=== PATIENT | female | born 1930 | race Caucasian/White ===

== ENCOUNTER 2016-08-01 11:15 | Inpatient (IN) | payer MEDICARE, OTHER ==
--- NOTE | ~2016-08-01 | CON ---
[facility] 86 Y [address] ROOM: [place] [address] LOCATION: [facility] ADMIT DATE: 08/01/2016 Consultation DISCHARGE DATE: FAMILY PHYSICIAN: PHYSICIAN, UNKNOWN ATTENDING PHYSICIAN: Srinivasan Kline DATE OF CONSULTATION: 08/01/2016 REFERRING PHYSICIAN: Srinivasan Kline MD REASON FOR THE CONSULTATION: Medical management for the patient with hip fracture. HISTORY OF PRESENT ILLNESS: The patient is an 86-year-old, female, who has mild dementia, chronic heart failure, and chronic bronchitis, was in her usual state of fair health when she slipped after letting her dog out this morning. She initiated her Life Alert bracelet and her daughter was notified that her mom had fallen and was on the floor. When her daughter arrived at home, she found her mom sitting in front of a rotary drier on the floor, unable to move, with pain in her right hip. She was transferred to a hospital in [place], [place], from where she was transferred to us for a definitive care of the hip fracture. The entire history is obtained from the daughter who is her power of commercial litigation attorney along with her brother who resides in [place]. The patient also sustained a skin tear to her right elbow and was complaining of left heel and ankle tenderness. She has been admitted to the Orthopedic floor and is awake and alert, pending for the surgery. PAST MEDICAL HISTORY: 1. Chronic bronchitis. 2. Atrial fibrillation, on chronic anticoagulation therapy. 3. Severe pneumonia in early . 4. TIA. 5. Dementia. 6. Atrial septal defect, status post noninvasive repair. 7. Chronic heart failure. 8. Elevated liver functions of unknown etiology in fall of 2016. 9. Maxillary sinusitis. PAST SURGICAL HISTORY: 1. Bilateral cataract resection with lens implant. 2. Multiple sinus procedures for chronic sinusitis in the . 3. Cholecystectomy. 4. Appendectomy. 5. ASD, status post occluded and replaced in [place] around 10 years ago or more. [facility]: [facility] AGE: 86 Y [address] ROOM: [place] [address] LOCATION: [facility] ADMIT DATE: 08/01/2016 Consultation DISCHARGE DATE: FAMILY PHYSICIAN: PHYSICIAN, UNKNOWN ATTENDING PHYSICIAN: Srinivasan Kline SOCIAL HISTORY: She is ,is living alone, sometimes her son staying with her, but at other times, lives with her daughter. She quit smoking at age approximately 49 with an unknown pack-year history of smoking. She has no history of alcohol use. The patient wishes to be a DNR/DNI as confirmed to me by her daughter. FAMILY HISTORY: Her father in his 50s of an [place]. Her mother in her 70s of cancer, thought to be multiple myeloma. REVIEW OF SYSTEMS: Positive for chronic cough, it is productive, but she has difficulty expectorating due to her weakness. Her urine had been dark previously with elevated liver functions, but was noted to be dark again when she was catheterized earlier today. She denies recent headaches or visual changes. She has had decreased hearing. Her chronic heart failure was fairly uncontrolled about 6 months ago, but has been much better recently. Otherwise, a 12-point review of systems is negative. ALLERGIES: GLUCOCORTICOIDS, PROPOXYPHENE, ACETAMINOPHEN, METHYLPREDNISOLONE, METHADONE, AND LATEX. MEDICATIONS: She takes, 1. Tylenol Arthritis 650 mg tablets two every 8 hours as needed. 2. She takes azithromycin 250 mg p.o. three times a week for chronic bronchitis. 3. Symbicort inhaler 160/4.5 mcg two puffs every 12 hours. 4. Ahist 25 mg at h.s. 5. Digoxin 125 mcg every evening. 6. Colace 200 mg every morning. 7. Aricept 10 mg daily. 8. Folic acid 0.8 mg daily. 9. Guaifenesin. 10. Mucinex tabs 600 mg p.o. daily. 11. Robitussin DM liquid 10 mL every 4 hours p.r.n. cough. 12. DuoNeb inhaler 3 times daily. 13. Loratadine 10 mg daily. 14. Memantine 10 mg p.o. b.i.d. 15. Zaroxolyn 2.5 mg every a.m. 16. Metoprolol XL 50 mg p.o. b.i.d. 17. Omeprazole 20 mg 3 times a week. PATIENT'S NAME: ELIDA WALTERS [facility] AGE: 86 Y [address] ROOM: [id number] [place], [place] [address] LOCATION: [facility] ADMIT DATE: 08/01/2016 Consultation DISCHARGE DATE: FAMILY PHYSICIAN: PHYSICIAN, UNKNOWN ATTENDING PHYSICIAN: Srinivasan Kline 18. Senna 1 at h.s. daily. 19. Spironolactone 12.5 mg every morning. 20. Warfarin 4 mg every day. PHYSICAL EXAMINATION: GENERAL: This is a well-developed, well-nourished, pale, elderly female who fell sleep when I came into the room, but is awake and alert for her physical exam. VITAL SIGNS: Temperature 97.7, pulse 80, respirations 20, and blood pressure 159/76. HEENT: Normocephalic, atraumatic. Pupils are equal, round, reactive to light. Sclerae are anicteric. Palpebral conjunctivae are very pale without exudate. Oropharynx is clear. She has upper dentures and her natural teeth in the lower jaw. NECK: Supple without lymphadenopathy or thyromegaly. LUNGS: Show like peak inspiratory wheeze which is scattered throughout the right, is clear on the left. She has some rhonchi on the right as well. She has intermittent wet cough with productive clear sputum. CARDIOVASCULAR: Slightly irregular rhythm. I do not appreciate a murmur. ABDOMEN: Soft, nontender, nondistended without hepatosplenomegaly or mass. Normoactive bowel sounds. EXTREMITIES: Tender on the right hip. There is 1 to 2+ pretibial edema. Strength in the left leg is good distally 5/5 with plantar flexion and dorsiflexion, it is not tested on the right because of the pain in the right hip with minimal attempt to sit up. Gross strength is about 4/5 and equal bilaterally. LABORATORY DATA: A urinalysis obtained here showed positive for leukocytes, negative for nitrites, positive for blood, and had 20-50 white blood cells per high-power field and packed with red cells. INR was above 2 at the other hospital and she received 10 mg of vitamin K IM. White blood cells 17.4, hemoglobin 14.7, hematocrit 42.6, MCV 87, and platelets 179,000. Sodium 138, potassium 3.6, chloride 104, CO2 23, glucose 133, BUN 33, and creatinine 1.2. Calcium 8.6, total protein 7.0, albumin 3.2, AST 29 (normal ranges is 15-37), and ALT 25. Albumin is 2.2. INR as I said above was 2.13. Cardiac enzymes: CPK 47, CK- MB 1.7, troponin 0.05 which was well within the normal range. RADIOGRAPHIC STUDIES: A CT of the head showed no acute intracranial findings, this is also done at the outlying facility. X-ray of the hip showed a femoral neck fracture. ASSESSMENT/PLAN: This is an elderly lady with multiple chronic medical problems which puts her at least moderate increased risk of perioperative complications, and I PATIENT'S NAME: ELIDA WALTERS [facility] AGE: 86 Y [address] ROOM: [place] [address] LOCATION: [facility] ADMIT DATE: 08/01/2016 Consultation DISCHARGE DATE: FAMILY PHYSICIAN: PHYSICIAN, UNKNOWN ATTENDING PHYSICIAN: Srinivasan Kline explained this to the daughter and she is willing to proceed with the operative repair. 1. She has a urinary tract infection with elevated white blood cell count. White blood cell is too high and rau-[id number]-dn-count red cells in her urine. We will give her a dose of Rocephin tonight. Follow that daily with daily dosing. Follow the urine culture results. 2. Chronic heart failure with atrial fibrillation, on anticoagulation therapy. She has had a dose of vitamin K to reverse her anticoagulation. Recheck her INR in the morning, recheck digoxin level in the morning, and continue her home medications. Hold her IV fluids for now. 3. Chronic bronchitis. Continue her azithromycin dosing 3 times a week. 4. Dementia. Continue Aricept and Namenda. 5. Code status. She is a DNR/DNI. 6. Disposition. As per Orthopedics. Thank you very much. NAYA IGLESIAS MD LM/ramesh /[id number] d: 08/01/16 2343 t: 08/27/16 1007, CONSULTATION REPORT
--- NOTE | ~2016-08-01 | DS ---
[facility] AGE[facility] 86 Y [address] ROOM: [place] [id number] LOCATION: [facility] ADMIT DATE: 08/01/2016 Discharge Summary DISCHARGE DATE: 08/13/2016 FAMILY PHYSICIAN: Floyd Romero MD ATTENDING PHYSICIAN: Srinivasan Kline DISCHARGE DIAGNOSES: 1. Femoral neck fracture of right hip. 2. Atrial fibrillation. 3. Pulmonary hypertension. 4. History of transient ischemic attack. 5. Dementia. 6. History of atrial septal defect repair. 7. DCMP. 8. Chronic bronchitis. OPERATIVE PROCEDURES: Hemiarthroplasty of right hip by Dr. Nicholas Dillon on 08/02/2016. HISTORY: This 86-year-old female, fell suffering a right femoral neck fracture, which was displaced. She presented to [facility] Emergency Room, and was admitted for definitive treatment. There were no other injuries. She was evaluated by the Hospitalist Service, and a Cardiac consult was obtained. She was cleared for surgery. HOSPITAL COURSE: She was taken to the Operating Room on 08/02/2016, where a hemiarthroplasty of the right hip was performed by Dr. Nicholas Dillon without complications. She was stable postoperatively. Her wound was excellent. Neuro checks were intact. She was seen by Physical Therapy, and ambulated weightbearing as tolerated. Postoperative x-rays demonstrated a hemiarthroplasty of the right hip in satisfactory position. DISCHARGE DISPOSITION: She was discharged to a long-term care facility on 08/07/2016. DISCHARGE ACTIVITY: Ambulate weightbearing as tolerated with assistance. DISCHARGE MEDICATIONS: 1. Docusate. 2. Folic acid. 3. Lovenox. 4. Metoprolol. 5. Metolazone. 6. Digoxin. [facility] AGE: 86 Y [address] ROOM: [address] [address] LOCATION: [facility] ADMIT DATE: 08/01/2016 Discharge Summary DISCHARGE DATE: 08/13/2016 FAMILY PHYSICIAN: Floyd Romero MD ATTENDING PHYSICIAN: Srinivasan Kline 7. Omeprazole. 8. Namenda. 9. Spironolactone. 10. Warfarin 4 mg daily. 11. Ipratropium/albuterol sulfate inhaler. 12. Acetaminophen. 13. Milk of magnesia. 14. Oxycodone. 15. Loratadine. 16. Saline nasal spray. DISCHARGE FOLLOWUP: She will follow up in the office for staple removal. PT Physical Therapy is to see her, weightbearing as tolerated. MD MIKE PHILIP/ramesh /[id number] d: 10/08/16 0037 t: 10/30/16 1114, DISCHARGE SUMMARY
--- NOTE | ~2016-08-01 | CON ---
PATIENT'S NAME: ELIDA WALTERS [facility] AGE: 86 Y [address] ROOM: [place] [address] LOCATION: [facility] ADMIT DATE: 08/01/2016 Consultation DISCHARGE DATE: FAMILY PHYSICIAN: Floyd Romero MD ATTENDING PHYSICIAN: Srinivasan Kline DATE OF CONSULTATION: 08/02/2016 REASON FOR CARDIOLOGY CONSULT: Need for preoperative cardiac evaluation. HISTORY OF PRESENT ILLNESS: This is an 86-year-old female who was admitted with a right hip fracture after a fall in her home. She had no complaints of syncope or loss of consciousness. She states she slipped on a floor by her back door after walking her dogs. She has a previous history of chronic systolic congestive heart failure as well as chronic atrial fibrillation and was last seen and evaluated by Dr. Sandhu in May 2016. She, at this time, has no complaints of chest pain, dyspnea on exertion, or palpitations. She does have complaints of shortness of breath as well as productive cough, but per her daughter who is her POA, she "has had that for years." At the time of this consult, she is resting comfortably in bed with some complaints of spasmodic pain in her hips and also of her cough, but otherwise is comfortable. PAST MEDICAL HISTORY: 1. Chronic systolic congestive heart failure. 2. Chronic atrial fibrillation, with long-term anticoagulation with Coumadin. 3. Chronic kidney disease. 4. Bronchiectasis. PAST SURGICAL HISTORY: 1. Hysterectomy. 2. Appendectomy. 3. Cholecystectomy. 4. Cataract removal. 5. Atrial septal occluder placed for a PFO. FAMILY HISTORY: She does have a positive history of myocardial infarction as well as cancer in her parents. She does have one child who has diabetes. SOCIAL HISTORY: The patient is a former cigarette smoker. She smoked half a pack per day and quit smoking in 1978. She denies alcohol or illicit drug use. CURRENT MEDICATIONS: PATIENT'S NAME: ELIDA WALTERS [facility] AGE: 86 Y [address] ROOM: [address] [address] LOCATION: N ADMIT DATE: 08/01/2016 Consultation DISCHARGE DATE: FAMILY PHYSICIAN: Floyd Romero MD ATTENDING PHYSICIAN: Srinivasan Kline 1. Dulera 200/5 mcg 2 puffs inhaled twice daily. 2. Ipratropium bromide and albuterol sulfate one puff inhaled 3 times daily. 3. Ancef 2 g IV on-call to the OR. 4. Rocephin 1 g IV daily in the evening. 5. Aldactone 12.5 mg p.o. daily. 6. Colace 100 mg p.o. twice daily. 7. Folic acid 800 mg p.o. daily. 8. Mucinex 600 mg p.o. daily. 9. MiraLax 17 g p.o. twice daily. 10. Namenda 10 mg p.o. twice daily. 11. Protonix 40 mg p.o. daily on Friday, Friday, and Friday. 12. Senokot 2 tablets p.o. daily in the evening. 13. Zaroxolyn 2.5 mg p.o. daily in the morning. MEDICATION ALLERGIES: Include corticosteroids, propoxyphene, methylprednisolone, and methadone. She is also allergic to latex, kiwis, and bananas. REVIEW OF SYSTEMS: A 12-point review of systems evaluated and negative except for those listed in the HPI. DIAGNOSTIC DATA: CMS evaluation shows a sodium of 139, potassium 4.0, BUN of 32, creatinine 1.3, and glucose of 104. She has a digoxin level of 1.31. PT and INR show 20.6 and 1.9 respectively. Cardiac enzyme trend shows a CPK of 66, CK-MB of 0.8, and troponin-I of less than 0.04. She has a proBNP level of 10,964. PHYSICAL EXAMINATION: VITAL SIGNS: Temperature 97.6, pulse 80, respirations 20, blood pressure 113/66, and O2 saturation 94% on 5 L nasal cannula. The patient weighs 67.7 kg. SKIN: [place], warm, and dry. EYES: Sclerae are clear. No xanthelasmas. ENT: Oral mucosa is pink and moist. NECK: No jugular venous distention or carotid bruits. CHEST: Respirations are even and unlabored. Lungs are coarse throughout with bibasilar crackles noted. She does have some upper airway clearing with cough. HEART: Irregular rate and rhythm. Normal S1 and S2. No murmurs, rubs, or gallops. ABDOMEN: Soft and nontender. MUSCULOSKELETAL: Equal muscle strength in the upper and lower extremities bilaterally against resistance. EXTREMITIES: Peripheral pulses palpable. No clubbing or cyanosis noted. PATIENT'S NAME: ELIDA WALTERS [facility] AGE: 86 Y [address] ROOM: [address] [place], [place] [address] LOCATION: [facility] ADMIT DATE: 08/01/2016 Consultation DISCHARGE DATE: FAMILY PHYSICIAN: Floyd Romero MD ATTENDING PHYSICIAN: Srinivasan Kline Does have minimal lower extremity edema present. PSYCHIATRIC: Alert and oriented. Mood and affect are appropriate. IMPRESSION AND PLAN: Per Dr. Kate Sebastian: 1. Preoperative cardiac evaluation. We will get an echocardiogram to fully evaluate ejection fraction as well as look for wall motion and valvular abnormalities. She currently has a negative set of cardiac enzymes and no signs and symptoms suggestive of acute coronary syndrome. Her EKG is stable without any acute changes noted. 2. Chronic atrial fibrillation, is currently rate controlled. Her Coumadin, which she uses for long-term anticoagulation, has been reversed for her surgery. Do recommend restarting the Coumadin postoperatively and continuing her beta kayla with her metoprolol as dosed per her home. 3. Chronic systolic congestive heart failure. With her elevated proBNP as well as congested-sounding lung sounds, we will give her 2 mg of IV Bumex now as well as check a stat chest x-ray. We will need another BMP evaluation in the morning. She is currently on a beta kayla as well as Zaroxolyn for diuresis. We will continue to monitor, evaluate, and treat as appropriate. 4. Right hip fracture status post a fall without syncope or loss of consciousness. Plan is for a surgical repair this afternoon. 5. Chronic kidney disease, stage 3. The patient overall is a moderate risk for perioperative cardiac events. Her congestive heart failure symptoms have improved recently with decreased weight after being placed on Zaroxolyn and Aldactone by Dr. Sandhu. She has overall had lesser complaints of shortness of breath. No further cardiac workup needed at this time prior to surgery. Of note, she does have a history of a patent foramen ovale with a closure device and did have history of a cerebrovascular accident. Due to that cerebrovascular accident, she is at high risk for further neurologic events if her oral anticoagulation is not restarted postoperatively. Would recommend heparin if unable to fully start Coumadin, but do make sure it is okay with Surgery beforehand. Thank you for this consult. Thank you for allowing [facility] to interact in the care of your patient. EDILSON AMBROSIO APRN FOR MD DANIELLE THOMAS/ramesh PATIENT'S NAME: ELIDA WALTERS [facility] AGE: 86 Y [address] ROOM: [address] [address] LOCATION: [facility] ADMIT DATE: 08/01/2016 Consultation DISCHARGE DATE: FAMILY PHYSICIAN: Floyd Romero MD ATTENDING PHYSICIAN: Srinivasan Kline /[id number] d: 08/02/16 1753 t: 08/11/16 [facility]0, CONSULTATION REPORT
--- NOTE | ~2016-08-01 | PUL ---
PATIENT'S NAME: ELIDA WALTERS [facility] AGE: 86 Y [address] ROOM: [address] [address] LOCATION: [facility] ADMIT DATE: 08/01/2016 Pulmonary DISCHARGE DATE: 08/06/2016 FAMILY PHYSICIAN: Floyd Romero MD ATTENDING PHYSICIAN: Srinivasan Kline NAME OF PROCEDURE: Overnight Pulse Oximetry DATE OF PROCEDURE: August 04 to August 05, 2016 REASON FOR EXAM: Nocturnal hypoxemia RESULTS: The test was performed on room air. The recording time was 9 hours, 58 minutes and 8 seconds, with a total valid sampling time of 9 hours, 10 minutes and 52 seconds. The highest pulse was 139, lowest pulse was 70, with a mean pulse of 91. The highest SpO2 was 96%, lowest SpO2 was 77%, with a mean SpO2 of 90.8%. The patient spent 1 hour, 37 minutes and 56 seconds with SpO2 less than 89%, representing 17.8% of the total sleep time. The desaturation event index was elevated at 29.4. PHYSICIAN INTERPRETATION: The patient has evidence of significant nocturnal hypoxia and would qualify for supplemental oxygen as per Medicare criteria. However, because of the severity of her nocturnal hypoxia with an elevated desaturation event index a sleep study is recommended at this time. MD AMARA DAVENPORT/sasha /[id number] Corrected copy per physician 08/14/16 AO dtt: 08/14/16 [id number] , WILLY WISE dtd: 08/08/16 134
--- NOTE | ~2016-08-01 | ECHO ---
Transthoracic Echocardiography Report (TTE) Demographics Patient Name ELIDA WALTERS Date of Study 08/02/2016 K Patient Number [id number] Visit Number [id number] Date of 1930 Room Number G3301 Accession Number [id number] Gender Female Age 86 year(s) Referring Enma Fischer Scrap Bunch Maker Nara Shaffer Physician RDCS Physician Interpreting Jaz Love Comber Tender Physician MD Supervising Ordering Physician MD/MLP Nurse Stress Drywall Contractor Conclusions Contractility Score Summary Global Left Ventricular Hypokinesis was noted. Summary Technically difficult exam. Definity contrast used to enhance endocardial borders to assess LV better. Mild to moderately reduced LV systolic function, estimated LVEF is about 35-40%. Moderate concentric left ventricular hypertrophy. Mildly reduced right ventricular function. Severe biatrial enlargement. There is mild aortic regurgitation by color Doppler. Moderate tricuspid regurgitation by color Doppler. There is severe pulmonary hypertension. The pulmonary pressure (RVSP) is 67 mmHg. Paradoxical septal motion consistent with right ventricle pressure and/or volume overload . Procedure Type of Study TTE procedure:2D Echocardiogram. Procedure Date Date: 08/02/2016 Start: 10:54 AM Study Location: Inpatient Portable Indications:Preop cardiac evaluation. Appropriate Use Criteria: 9 Patient Status: Routine HR: 85 bpm BP: 121/83 mmHg M-Mode/2D Measurements LV Diastolic Dimension: 5.3 cm LV Systolic Dimension: 4.49 cm LV Septum Diastolic: 1.41 cm LV PW Diastolic: 1.4 cm AO Root Dimension: 1.4 cm Cardiac Output: 3.42 l/min AV Cusp Separation: 1.5 cm RV Diastolic Dimension: 3.17 cm LA volume: 120 ml LVOT: 1.9 cm LVOT VTI: 14.2 cm TAPSE: 1.17 cm LV Stroke volume: 40.24 ml Doppler Measurements AV Peak Velocity: 2.19 m/s MV Peak E-Wave: 1.25 m/s AV Peak Gradient: 19.18 mmHg MV Peak A-Wave: 0.27 m/s AV Mean Gradient: 9 mmHg MV E/A Ratio: 4.61 LVOT Peak Velocity: 0.96 m/s TR Velocity:3.04 m/s PV Peak Velocity: 1.02 m/s TR Gradient:36.97 mmHg PV Peak Gradient: 4.16 mmHg Estimated RAP:10 mmHg Estimated PASP: 46.97 mmHg Estimated RVSP: 47 mmHg Findings Left Ventricle Moderate concentric left ventricular hypertrophy. Diastolic function indeterminate due to patient's arrhythmia. Paradoxical septal motion consistent with right ventricle pressure and/or volume overload . Right Ventricle Mildly reduced right ventricular function. Left Atrium The left atrium is severely dilated. H/o ASD repair, no e/o obvious shunt by color doppler. Right Atrium The right atrium is severely dilated. Mitral Valve Moderate eccentric posteriorly directed jet of MR. Aortic Valve There is mild aortic regurgitation by color Doppler. Tricuspid Valve Moderate tricuspid regurgitation by color Doppler. There is severe pulmonary hypertension. The pulmonary pressure (RVSP) is 67 mmHg. Pulmonic Valve Normal pulmonic valve structure and function. Pericardial Effusion No evidence of pericardial effusion. Pleural Effusion No evidence of pleural effusion. Contractility Score LV regional wall motion:(0-Non visualized 1-Normal 2-Hypokinesis 3-Akinesis 4-Dyskinesis 5-Aneurysm) Signature dtt: KAREEN MESA dtd: 08/02/16 1054 Physician Self Edit
--- NOTE | ~2016-08-01 | HP ---
[facility] AGE: 86 Y [address] ROOM: [place] [address] LOCATION: [facility] ADMIT DATE: 08/01/2016 History & Physical DISCHARGE DATE: FAMILY PHYSICIAN: PHYSICIAN, UNKNOWN ATTENDING PHYSICIAN: Srinivasan Kline CHIEF COMPLAINT: Right femoral neck fracture. HISTORY OF PRESENT ILLNESS: This 86-year-old female fell at her own home today in the kitchen. She slipped and landed on her right hip. She had severe pain. She was brought to the [facility], where x-rays demonstrate a displaced fracture of the right femoral neck. She denies blackout spells, dizziness, headaches, or blurred vision. No chest pain or shortness of breath. No other injuries. ALLERGIES: DARVOCET UPSETS STOMACH. MEDICATIONS: 1. Aldactone. 2. Dulera. 3. Folate. 4. Humibid. 5. Albuterol. 6. Lanoxin. 7. Namenda. 8. Zaroxolyn. 9. Toprol-XL. PAST MEDICAL HISTORY: She denies diabetes. She has atrial fibrillation and is on Coumadin for that, has hypertension, mild dementia. She denies kidney failure or liver problems. She has had lung troubles and bronchiectasis. PAST SURGICAL HISTORY: Hysterectomy and appendectomy. FAMILY HISTORY: One parent of cancer and other of heart trouble. SOCIAL HISTORY: No smoking or alcohol use. Lives part-time with her daughter and part-time in her own house. REVIEW OF SYSTEMS: No malaise or weight change. She has had a chronic cough. No shortness of PAT[facility] AGE: 86 Y [address] ROOM: [address] [address] LOCATION: [facility] ADMIT DATE: 08/01/2016 History & Physical DISCHARGE DATE: FAMILY PHYSICIAN: PHYSICIAN, UNKNOWN ATTENDING PHYSICIAN: Srinivasan Kline breath or chest pain. No palpitations. She has atrial fibrillation. No dysuria or hematuria. She does suffer occasionally for constipation. No nausea or vomiting. No endocrine disorders. No skin changes. No psychiatric issues. No auditory or visual disturbances. PHYSICAL EXAMINATION: GENERAL: She is awake, alert, and oriented x3. Mood and affect appropriate. VITAL SIGNS: Blood pressure 148/79, pulse 85, respirations 18, and temp 99.7. HEENT: Atraumatic, normocephalic. PERRL. EOMI. TMs clear. Throat clear. NECK: Supple. CHEST: Chest with some rales, rhonchi, and gurgles. ABDOMEN: Soft, nontender, active bowel sounds. No masses. EXTREMITIES: Mild pedal edema. MUSCULOSKELETAL: She is tender in the right hip and has pain with motion of the hip. Hip is short and externally rotated. Pulses are intact. Left hip, knee, and ankle are nontender. Upper extremities nontender with full range of motion. Neck moves well. Spine nontender. NEUROLOGIC: Exam intact. Pulses good. Reflexes equal. Sensation intact bilaterally. LABORATORY DATA: X-rays from [facility], pelvis, and lateral of the right hip demonstrates a displaced right femoral neck fracture. IMPRESSION: 1. Displaced right femoral neck fracture. 2. Hypertension. 3. Atrial fibrillation. 4. Chronic anticoagulation. 5. Chronic bronchitis, possible bronchiectasis. 6. Mild dementia. PLAN: Hemiarthroplasty right hip. I discussed details of the surgical procedure, risks, benefits, alternatives, emphasizing anesthetic, neurovascular, and infectious complications including dislocation, possible need for blood transfusions. The patient understands that Dr. Dillon will be doing the surgery and desires to proceed with surgery as planned. Risks and benefits also discussed with the daughter and she understands and desires to proceed as well. We will be reversing her anticoagulation prior to surgery. SRINIVASAN KLINE MD PATIENT'S NAME: ELIDA WALTERS [facility] AGE: 86 Y [address] ROOM: [place] [address] LOCATION: [facility] ADMIT DATE: 08/01/2016 History & Physical DISCHARGE DATE: FAMILY PHYSICIAN: PHYSICIAN, UNKNOWN ATTENDING PHYSICIAN: Srinivasan Kline/ramesh /[id number] CC: Floyd Romero MD D: [id number] T: [id number] HISTORY & PHYSICAL
--- NOTE | ~2016-08-01 | OR ---
PATIENT'S NAME: ELIDA WALTERS [facility] AGE: 86 Y [address] ROOM: [address] [address] LOCATION: [facility] ADMIT DATE: 08/01/2016 OR/Procedure Report DISCHARGE DATE: 08/06/2016 FAMILY PHYSICIAN: Floyd Romero MD ATTENDING PHYSICIAN: Srinivasan Kline SURGEON: Nicholas Adamson MD LABORATORY ANIMAL CARE VETERINARIAN: DATE OF PROCEDURE: 08/02/2016 DIAGNOSIS: Right hip displaced femoral neck fracture. PROCEDURE: Hemiarthroplasty. ANESTHESIA: General. INDICATION: Dr. Kline's patient had a fall with displaced femoral neck fracture, for hemiarthroplasty. Risks, benefits, and alternatives were discussed. DESCRIPTION OF PROCEDURE: Taken to the operating room, prophylactic antibiotics, placed in left lateral decubitus position. All pressure points were carefully checked and padded. The right flank, hip, and lower extremity were prepared with DuraPrep, draped sterilely. An 8 cm incision was made over the posterolateral hip, dissection through gluteal muscles. The gluteal muscles were divided in line with the muscles between the upper and lower portions. Short rotators and piriformis were identified. They were elevated, tagged, and divided. Capsule was T'd. Femoral neck was cut 1 cm above the lesser trochanter, 45-degree angle to the femoral shaft and 15 degrees of anteversion. Head was dislocated, measured 44 mm. A 44 mm trial was perfect. Irrigated, no active bleeding. Cookie cutter was used to establish a lateral entry point. Eliecer broaches were advanced to a 13.5. Standard length neck 44 mm head was perfect in terms of stability motion and leg length. Trials were removed, irrigated. 13.5 permanent implant was driven in place. 44 mm standard length neck was placed on the femoral component. Hip was located, again very stable. Gluteal fascia was closed with #1 Vicryl, subcutaneous tissue was closed with 0 Vicryl, followed by 2-0 Vicryl subcuticular, followed by faisal. Procedure was done without complication. Estimated blood loss from the procedure was minimal. To the recovery room in stable condition. Postoperative course showed the right hemiarthroplasty in perfect position and located concentrically. NICHOLAS ADAMSON MD DPM/ramesh PATIENT'S NAME: ELIDA WALTERS [facility] AGE: 86 Y [address] ROOM: [place] [address] LOCATION: [facility] ADMIT DATE: 08/01/2016 OR/Procedure Report DISCHARGE DATE: 08/06/2016 FAMILY PHYSICIAN: Floyd Romero MD ATTENDING PHYSICIAN: Srinivasan Kline /[id number] d: 08/15/16 172 t: 08/21/16 0835, OPERATIVE SUMMARY
[2016-08-01] MEDS ORDERED: AHIST25 MG PO (12:47)
[2016-08-01] MEDS ORDERED: IPRAT-ALBUT 0.5-3 ML INH (12:51)
[2016-08-01] MEDS ORDERED: ALDACTONE25 MG PO (12:54)
[2016-08-01] MEDS ORDERED: ARICEPT10 MG PO (12:55)
[2016-08-01] MEDS ORDERED: COUMADIN 4MG **4 MG PO (12:57)
[2016-08-01] MEDS ORDERED: COLACE100 MG PO (12:58)
[2016-08-01] MEDS ORDERED: FOLIC ACID0.8 M1 PO (12:59)
[2016-08-01] MEDS ORDERED: NAMENDA10 MG PO (13:00)
[2016-08-01] MEDS ORDERED: LANOXIN (DIGI125 MCG PO (13:00)
[2016-08-01] MEDS ORDERED: ZAROXOLYN2.5 MG PO (13:02)
[2016-08-01] MEDS ORDERED: MUCINEX600 MG PO (13:03)
[2016-08-01] MEDS ORDERED: PRILOSEC20 MG PO (13:05)
[2016-08-01] MEDS ORDERED: ROBITUSSIN DM120 ML PO (13:06)
[2016-08-01] MEDS ORDERED: SENNA8.6 MG PO (13:07)
[2016-08-01] MEDS ORDERED: SYMBICORT 16010.2 GM INH (13:07)
[2016-08-01] MEDS ORDERED: TOPROL XL 5050 MG PO (13:08)
[2016-08-01] MEDS ORDERED: TYLENOL ARTHRI650 MG PO (13:08)
[2016-08-01] MEDS ORDERED: ZITHROMAX250 MG PO (13:09)
[2016-08-01] MEDS ORDERED: CLARITIN10 MG PO (13:09)
[2016-08-01 14:03] LABS: INR - (THERAPEUTIC) 2.1 (0.9-1.1)
[2016-08-01 15:03] LABS: BILIRUBIN URINE NEGATIVE (NEGATIVE); BLOOD URINE 250 /UL (NEGATIVE); COLOR URINE YELLOW (YELLOW); GLUCOSE URINE NEGATIVE (NEGATIVE); KETONE URINE NEGATIVE (NEGATIVE); LEUKOCYTES URINE 100 /UL (NEGATIVE); NITRITE URINE NEGATIVE (NEGATIVE); PROTEIN URINE 100 mg/dL (NEGATIVE); TURBIDITY URINE 3+ (CLEAR); UROBILINOGEN URINE 1 mg/dL (NORMAL)
[2016-08-01 15:12] LABS: BACTERIA URINE RARE (NEGATIVE); EPITHELIAL URINE 0-2 #/HPF (NEGATIVE); RBC URINE PACKED FIELD #/HPF (NEGATIVE); WBC URINE 20-50 #/HPF (NEGATIVE)
--- NOTE | 2016-08-01 15:39 | NUR ---
Pt is 86 y/o female admit for right hip fracture for . Pt alert and oriented x3. Resides at home but stays with her daughter frequently. Pt has some dementia. Allergies to darvocet,zocor,prednisone,solumedrol. Hx TIA,afib, asthma,chronic bronchitis,home neb tx's,pneumonia,constipation,gerd. Pt's daughter at bedside. Pt is DNR. PT's daughter reports she received a call this am shortly before 0600 and was informed her mom's lifeline alarm went off. Daughter found pt on floor in front of washer and dryer. Pt states she got up to let dog out and slipped after coming back in.
--- NOTE | 2016-08-01 19:26 | NUR ---
PT ADMITTED FROM [facility] AT 1100 VIA AMBULANCE. DAUGHTER ACCOMPANIED. PT FELL WHILE DOING LAUNDRY. EVALUATED AT HOSPITAL AND TRANSFERRED HERE. INR 2.4 AND GIVEN VIT K IM AND HER INR DID NOT DROP ENOUGH TO HAVE SURGERY TODAY. NPO AT MIDNIGHT. LS COARSE THROUGHOUT. COUGHS WELL BUT HURTS HER HIP. HAS CHR AND COPD. O2 AT 2L, DOES NOT USE O2 AT HOME. RAMIREZ PLACED IN OTHER FACILITY, HAS MANY RBC'S. LEUKOCYTES HIGH, NO BACTERIA SEEN. MORPHINE X1. RESTING ON AND OFF IN ROOM. DAUGHTER WILL BE STAYING ALL NIGHT.
--- NOTE | 2016-08-02 04:56 | NUR ---
Patient alert, pleasant and cooperative, lungs sound coarse, on 5L via nasal canula, pain under control using percocet, has bruising to the left hip, daughter is very involved/overly involved in care she is a nurse, NPO at midnight,
[2016-08-02 05:44] LABS: INR - (THERAPEUTIC) 1.9 (0.9-1.1); PROTIME 20.6 SECONDS (9.6-11.1)
[2016-08-02 05:59] LABS: ALBUMIN 2.6 gm/dL (3.5-5.0); CALCIUM 8.2 mg/dL (8.5-10.5); CREATININE 1.3 mg/dL (0.5-1.1)
[2016-08-02 09:02] LABS: CPK 66 IU/L (21-215)
--- NOTE | 2016-08-02 13:45 | NUR ---
Introduced self to patient and her daughter, explained my role. They would like me to look into either [facility] or the [facility] in [place], no real preference. Patient doctors in [place] with Dr Romero. No preference on BB docs. They are still awaiting the okay to go to surgery. Wrote my name on the marker board. Will continue to follow.
[2016-08-02 14:24] LABS: INR - (THERAPEUTIC) 1.6 (0.9-1.1); PROTIME 17.4 SECONDS (9.6-11.1)
--- NOTE | 2016-08-02 19:26 | NUR ---
Significant Event:PT ALERT AND IN MORE PAIN. IV MORPHINE GIVEN 4 TIMES. REPOSITIONED. VITAMIN K SUB Q GIVEN X2. ECHO DONE. WAITED FOR CARDIOLOGY TO CLEAR FOR SURGERY. DAUGHTER IN ROOM. NEW IV PLACED. SHEARING ON BOTTOM, BARRIER CREAM APPLIED. Follow up:
--- NOTE | 2016-08-03 04:49 | NUR ---
DNR ADMIT 08/01 S/P FALL WITH SURGICAL INTERVENTION 08/02 SO IS POD#1 AT THIS TIME, RETURNED TO FLOOR AT 1945, NS @100ML/HR TO RIGHT POST FA AND SITE INTACT, PAIN WELL CONTROLLED THIS SHIFT AND RATED PAIN 0/10 AFTER WAS GIVEN PERCOCET IN PACU @1900, MINOR SHEAR TO BUTTOCKS AND ALOE VESTA USED TO PROTECTION, RAMIREZ IN PLACE WITH MINIMAL OUT AFTER SX BUT PACU EMPTIED RAMIREZ BEFORE RETURNING TO FLOOR SO TOTAL WAS LARGER, PATIENT WAS GIVEN BUMEX IVP YESTERDAY FOR FLUID OVERLOAD, BUT LUNGS ARE CLEAR [facility]HOUGH PATIENT REMAINS ON 3L PER NC FOR SUPPORT. ATTEMPTED TO SALINE LOCK PATIENT BUT NOT TAKING ENOUGH FLUIDS PO SO REMAINED @100MLHR THRU THE NIGHT. DAUGHTER IS AT BEDSIDE AND SPENT THE NIGHT. PATIENT WITH SOME SLIGHT CONFUSION WHEN WAKING, BUT REORIENTS WELL.
[2016-08-03 06:04] LABS: HEMATOCRIT 40.9 % (30.0-46.0); HEMOGLOBIN 13.7 g/dL (10.0-15.0); MCH 29.8 pg (27.0-34.0); MCHC 33.5 gm/dL (32.0-36.5); MCV 89.1 fl (83.0-98.0); MPV 9.8 fl (9.4-12.4); PLATELET COUNT 167 K/uL (150-450); RBC 4.59 M/uL (3.00-5.00); RDW-CV 16.4 % (11.9-14.6); WBC 9.7 K/uL (4.0-11.0)
[2016-08-03 06:16] LABS: INR - (THERAPEUTIC) 1.2 (0.9-1.1)
[2016-08-03 06:17] LABS: ANION GAP 14.7 (10.0-19.0); CALCIUM 7.9 mg/dL (8.5-10.5); CREATININE 1.7 mg/dL (0.5-1.1); POTASSIUM 3.7 mMol/L (3.7-5.1)
[2016-08-03 07:07] LABS: ABSOLUTE NEUTROPHIL CT (ANC) 9.4 K/uL (1.8-7.8); BANDED NEUTROPHIL # 0.3 K/uL (0.0-0.1); BANDED NEUTROPHILS % 3 %; LYMPHOCYTE # 0.2 K/uL (0.8-4.0); LYMPHOCYTE % 2 %; SEGMENTED NEUTROPHIL # 9.1 K/uL (1.8-7.8); SEGMENTED NEUTROPHIL % 94 %
--- NOTE | 2016-08-03 16:52 | NUR ---
Significant Event: AOx3. VSS. CSM WNL. Up with 1 assist with walker. Percocet given last at 1610. IV fluids running at 75ml for 500ml. [place] to remain in with strict I/O. Up in Chair x2. 625ml output in cartwright for day shift. Dressing to R) hip C/D/I. Daughter at bedside. Follow up:
--- NOTE | 2016-08-04 04:11 | NUR ---
PATIENT IS A DNR POD#2 S/P RIGHT HIP FX WITH RIGHT HIP BARBY, INCISION CDI, CSMS GOOD, VS WNL, RAMIREZ TOTAL 1525 THIS SHIFT, CLEAR YELLOW UOP AFTER BOLUS YESTERDAY, LUNGS CLEAR W/PRODUCTIVE COUGH, NO EDEMA NOTED. UA NEGATIVE. NO C/O OF PAIN THIS SHIFT. PATIENTS DAUGHTER IN THE ROOM AND IS VERY PROACTIVE WITH CARES. NEEDS DISCHARGE PLACEMENT IN [facility] FOR SWING BED VS SNF.
[2016-08-04 07:56] LABS: PROTIME 10.7 SECONDS (9.6-11.1)
[2016-08-04 08:01] LABS: ANION GAP 12.5 (10.0-19.0); CREATININE 1.2 mg/dL (0.5-1.1); POTASSIUM 3.5 mMol/L (3.7-5.1)
--- NOTE | 2016-08-04 15:05 | NUR ---
Significant Event: Aox3. VSS. CSM WNL. Dressing C/D/I. Up to bedside commode with 2 assist with walker. Percocet given for pain. Strict I/O. Post removed at 1120. Patient has voided x1 in bedside comode. Ice applied to R) hip. Daughter at bedside. Planning on transferring to [facility] sometime Follow up:
--- NOTE | 2016-08-05 04:36 | NUR ---
PATIENT IS A DNR POD#3 S/P FALL WITH RIGHT HIP FX AND REPAIR BARBY, DSG CDI AND NO DRAINAGE NOTED. PERCOCET PRN FOR PAIN LAST DOSE @0230 WITH GOOD RESULTS. PATIENT UP WITH 1-2 ASSIST TO BSC FOR GOOD UOP THIS SHIFT AND LAST BM 08/04 ON THIS SHIFT WITH STRICT I&O, DAILY WT WAS 69.9KGS. RIGHT FA PIV SALINE LOCKED. TREND OX OVER NIGHT FOR POSSIBLE O2 NEEDS PATIENT HAS BEEN ON O2 AT NIGHT THE ENTIRE STAY, LUNG SOUNDS WITH SOME BRONCHIAL RALES BUT CLEARS WITH COUGH. VERY PLEASANT AND FORGETFUL AT TIMES BUT REORIENTS WELL. FAMILY ALWAYS PRESENT AND SON SPENT THE NIGHT LAST NIGHT. POSSIBLE DC FRIDAY TO [facility] FOR EITHER SWING BED OR SNF. CASE MGT ACTIVELY WORKING ON PLACEMENT. DAUGHTER IS AN RN AND PATIENT LIVES WITH HER THE MAJORITY OF THE TIME.
[2016-08-05 07:40] LABS: PROTIME 10.6 SECONDS (9.6-11.1)
[2016-08-05 07:49] LABS: CALCIUM 8.1 mg/dL (8.5-10.5)
[2016-08-05 07:51] LABS: ANION GAP 13.4 (10.0-19.0); POTASSIUM 4.4 mMol/L (3.7-5.1)
--- NOTE | 2016-08-05 13:29 | NUR ---
Called and talked with Sumanth at [facility], they are still reviewing pt referral and will let me know if they can accept. Called Dr Garcia office and left message for his nurse Kaylee asking if he is going to accept and if so would he like a call from our physician, still waiting to see if [facility] or [facility] will accept.
--- NOTE | 2016-08-05 14:42 | NUR ---
Joyce at [facility] called me back, they will accept pt tomorrow, unable to accept today. They will come get her tomorrow at 1100. Let nurse know, let son know. Fax number [phone]. .
--- NOTE | 2016-08-06 02:52 | NUR ---
PATIENT ALERT BUT FORGETFUL. UP WITH TWO ASSIST, GAITBELT, WALKER. BOWEL MOVEMENT LAST NIGHT. PAIN MEDICATION GIVEN ONCE PRIOR TO BED. GOOD INTAKE AND OUTPUT NOTED. PATIENT TO TRANSFER TO [facility] AT 1100 ON [facility].
[2016-08-06 05:48] LABS: PROTIME 10.3 SECONDS (9.6-11.1)
--- NOTE | 2016-08-06 10:37 | NUR ---
PT ALERT BUT FORGETFUL. 1 ASSIST TO AMBULATE BUT NEEDS LOTS OF QUOES.DRESSING CHANGE TO RT HIP DONE THIS AM AFTER SHOWER. DONTAE INTACT. SLIGHT PINK AREA ON COCCYX. USING ALOE CREAM TO THE AREA. PT HAS A HARSH COUGH. COUGHING UP PIML SPUTUM AT TIMES. DRS AWARE. FAMILY STATES THIS IS A NORMAL THING FOR HER. SEVERAL BRUISED AREAS FROM HER RECENT FALL. PT HAD AN EPISODE OF LOW BLOOD PRESSURE AFTER SHOWER THIS AM. BLOOD PRESSURE RETURNED TO NORMAL AFTER RETURING TO THE CHAIR AND RESTING. FAMILY NOTIFIED OF INCIDENT.
--- NOTE | 2016-08-06 10:49 | NUR ---
PT GOT LIGHT HEADED AND WEAK AFTER SHOWER THIS AM. BLOOS PRESSURES DROPPED TO 80'S OVER 40'S. PT WAS PUT IN THE RECLINER AND LAID BACK AND RECOEVERED WITH A B/P 118/53. PULSE 84. PT STATES GOT DIZZY FOR A MINUTE. BLOOD PRESSURE MEDS HELD PER ORDERS. PT APPROVED BY TO TRANSFER PLANNED.
--- NOTE | 2016-08-06 10:55 | NUR ---
PT TRANSFERED TO [facility] PER [facility].
--- NOTE | 2016-08-06 11:25 | NUR ---
Patient discharged today to [facility] for skilled stay.
== END 2016-08-06 11:05 | DRG 469 ==
LOC: G3N 11:15
PROVIDERS: Internal Medicine; Internal Medicine Interventional Cardiology; Nurse Practitioner Family; Orthopaedic Surgery; ADMIT Orthopaedic Surgery
PROC: 0SRR01A Replacement of Right Hip Joint, Femoral Surface with Metal Synthetic Substitute, Uncemented, Open Approach (ICD-10-PCS; principal; 2016-08-02)
DX: S72.001A Fracture of unspecified part of neck of right femur, initial encounter for closed fracture (principal); I50.23 Acute on chronic systolic (congestive) heart failure; N17.9 Acute kidney failure, unspecified; I95.9 Hypotension, unspecified; I42.0 Dilated cardiomyopathy; F03.90 Unspecified dementia, unspecified severity, without behavioral disturbance, psychotic disturbance, mood disturbance, and anxiety; I27.2 Other secondary pulmonary hypertension; N39.0 Urinary tract infection, site not specified; I48.91 Unspecified atrial fibrillation; Z79.01 Long term (current) use of anticoagulants; W01.0XXA Fall on same level from slipping, tripping and stumbling without subsequent striking against object, initial encounter; J42 Unspecified chronic bronchitis; Z86.73 Personal history of transient ischemic attack (TIA), and cerebral infarction without residual deficits; Z66 Do not resuscitate; Z87.891 Personal history of nicotine dependence; I48.2 Chronic atrial fibrillation; I12.9 Hypertensive chronic kidney disease with stage 1 through stage 4 chronic kidney disease, or unspecified chronic kidney disease; N18.3 Chronic kidney disease, stage 3 (moderate); K59.00 Constipation, unspecified; E83.42 Hypomagnesemia
CPT/HCPCS: C1776; J0690; J0696; J1650; J2270; J2405; J3010; J7030; J7040; J7120; Q9957